=== PATIENT | female | born 1995 | race Caucasian/White ===

== ENCOUNTER 2019-05-25 20:20 | Outpatient (CLI) | payer SELFPAY ==
[2019-05-25 20:26] VITALS: BP 123/73
[2019-05-25 21:49] LABS: T.VAGINALIS (WET MOUNT) NO TRICHOMONAS SEEN; WBCS (WET MOUNT) 4+ WBCS SEEN; YEAST (WET MOUNT) NO YEAST SEEN
[2019-05-25 21:50] LABS: BACTERIA (WET MOUNT) 4+ BACTERIA SEEN; EPITHELIALS (WET MOUNT) 3+ EPITHELIALS SEEN; RBCS (WET MOUNT) 2+ RBCS SEEN
[2019-05-25 21:57] LABS: APPEARANCE,URINE CLOUDY; BILIRUBIN,URINE NEGATIVE (NEGATIVE); COLOR,URINE DARK YELLOW; GLUCOSE, URINE NEGATIVE (NEGATIVE); KETONES,URINE TRACE mg/dL (NEGATIVE); LEUKOCYTE ESTERASE,URINE SMALL (NEGATIVE); NITRITE,URINE NEGATIVE (NEGATIVE); PROTEIN,URINE 30 mg/dL (NEGATIVE); URINE SPECIFIC GRAVITY 1.031
[2019-05-25 21:59] LABS: ABSOLUTE EOSINOPHILS # (AUTO) 0.1 10^3/uL (0.0-0.6); ABSOLUTE LYMPHOCYTES (AUTO) 2.2 10^3/uL (0.5-4.7); ABSOLUTE MONOCYTES (AUTO) 0.8 10^3/uL (0.1-1.4); BASOPHILS % (AUTO) 0.2 % (0-2); EOSINOPHILS % (AUTO) 0.7 % (0-6); HEMATOCRIT 33.3 % (36.0-47.0); HEMOGLOBIN 11.6 g/dL (12.0-15.5); LYMPHOCYTES % (AUTO) 21.7 % (13-45); MEAN CORPUSCULAR HEMOGLOBIN 32.7 pg (27.0-33.4); MEAN CORPUSCULAR HGB CONC 34.8 g/dL (32.0-36.0); MEAN CORPUSCULAR VOLUME 94 fl (80-97); MONOCYTES % (AUTO) 7.5 % (3-13); PLATELET COUNT 192 10^3/uL (150-450); RED BLOOD COUNT 3.54 10^6/uL (3.72-5.28); RED CELL DISTRIBUTION WIDTH 12.6 % (11.5-14.0); SEGMENTED NEUTROPHILS % (AUTO) 69.9 % (42-78); TOTAL CELLS COUNTED % (AUTO) 100 %; WHITE BLOOD COUNT 10.1 10^3/uL (4.0-10.5)
[2019-05-25 22:03] LABS: URINE AMPHETAMINES SCREEN NEGATIVE; URINE BARBITURATES SCREEN NEGATIVE; URINE BENZODIAZEPINES SCREEN NEGATIVE; URINE COCAINE SCREEN NEGATIVE; URINE MARIJUANA (THC) SCREEN NEGATIVE; URINE METHADONE SCREEN NEGATIVE; URINE PHENCYCLIDINE SCREEN NEGATIVE
--- NOTE | 2019-05-25 22:52 | RADIOLOGY REPORT (SQ) ---
EXAM DESCRIPTION: US LIMITED CLINICAL HISTORY: 24 years Female cervical length, no pnc, dating, fluid, , LMP 12/02/2018 COMPARISON: None TECHNIQUE: Transabdominal limited OB ultrasound was performed for a total of 30 images. FINDINGS: There is a single intrauterine fetus in a vertex presentation. The heart rate measures 137 bpm. The cervix is closed and measures 3.6 cm in length. The amniotic fluid index measures 13.0 cm. The placenta is posterior, no previa. The BPD gives an EGA of 25 weeks four days, head circumference 25 weeks six days, abdominal circumference 24 weeks five days, and femur length 24 weeks two days. The estimated weight is 727 g or 1 lb. 10 oz. at 42%. The composite EGA by ultrasound is 25 weeks one day. The clinical age is 24 weeks six days. IMPRESSION: Single viable intrauterine in a vertex presentation with a posterior placenta, adequate amniotic fluid volume, estimated weight of 727g at 42%, and composite EGA by ultrasound of 25 weeks 1 day giving an EDC on 09/06/2019.
[2019-05-25 23:08] LABS: CHLAM PCR NOT DETECTED (NOT DETECT)
[2019-05-28 07:05] LABS: HEPATITS B SURFACE ANTIGEN Negative (Negative)
[2019-05-28 07:08] LABS: HEPATITIS C VIRUS AB >11.0 s/co ratio (0.0-0.9)
== END 2019-05-25 23:11 | disposition home or self-care (01) ==
LOC: EDSTATUS 20:41 → LC 20:49
PROVIDERS: ATTEND Student in an Organized Health Care Education/Training Program
PROC: 4A1HXCZ Monitoring of Products of Conception, Cardiac Rate, External Approach (ICD-10-PCS; principal; 2019-05-25)
DX: O09.32 Supervision of pregnancy with insufficient antenatal care, second trimester (principal); Z3A.25 25 weeks gestation of pregnancy
CPT/HCPCS: 36415; 76815; 80307; 81001; 85025; 86592; 86695; 86696; 86701; 86762; 86803; 86804; 86850; 86900; 86901; 87086; 87210; 87340; 87491; 87591

== ENCOUNTER 2019-06-05 22:02 | Emergency (ER) | payer SELFPAY ==
--- NOTE | 2019-06-05 22:37 | ER Document Report ---
ED Medical Screen (RME) - General Chief Complaint: Nausea Stated Complaint: COUGH SORE THROAT Time Seen by Provider: 06/05/19 22:32 Primary Care Provider: MATTHEW JUNIOR MD [Primary Care Provider] - Follow up as needed Mode of Arrival: Ambulatory Information source: Patient Notes: 24-year-old female that is 26 weeks G4, P3 presents to the emergency department with complaints of waking up this morning with a sore throat cough not feeling short of breath. She reports she has been vomiting having diarrhea all day. Denies fever but reports she has been feeling shaky and sweaty. Patient reports symptoms started this morning. Patient reports 1 month ago she came from [place] on a bus. She also reports she works at [employer]. Patient did not receive her flu vaccine this year. No known exposure to the coronavirus. I have greeted and performed a rapid initial assessment of this patient. A comprehensive ED assessment and evaluation of the patient, analysis of test results and completion of the medical decision making process will be conducted by additional ED providers. TRAVEL OUTSIDE OF THE [place] IN LAST 30 DAYS: No Physical Exam - Vital signs Vitals: Temp Pulse Resp BP Pulse Ox 98.3 F 100 18 109/71 98 06/05/19 22:14 06/05/19 22:14 06/05/19 22:14 06/05/19 22:14 06/05/19 22:14 Course - Vital Signs Vital signs: Temp Pulse Resp BP Pulse Ox 98.3 F 100 18 109/71 98 06/05/19 22:14 06/05/19 22:14 06/05/19 22:14 06/05/19 22:14 06/05/19 22:14 Doctor's Discharge - Discharge Referrals: MATTHEW JUNIOR MD [Primary Care Provider] - Follow up as needed
[2019-06-05 23:06] LABS: ABSOLUTE EOSINOPHILS # (AUTO) 0.1 10^3/uL (0.0-0.6); ABSOLUTE LYMPHOCYTES (AUTO) 2.3 10^3/uL (0.5-4.7); ABSOLUTE MONOCYTES (AUTO) 0.8 10^3/uL (0.1-1.4); ABSOLUTE NEUT (AUTO) 6.7 10^3/uL (1.7-8.2); BASOPHILS % (AUTO) 0.3 % (0-2); EOSINOPHILS % (AUTO) 1.3 % (0-6); HEMATOCRIT 31.2 % (36.0-47.0); HEMOGLOBIN 10.9 g/dL (12.0-15.5); LYMPHOCYTES % (AUTO) 22.9 % (13-45); MEAN CORPUSCULAR HEMOGLOBIN 32.4 pg (27.0-33.4); MEAN CORPUSCULAR HGB CONC 35.1 g/dL (32.0-36.0); MEAN CORPUSCULAR VOLUME 93 fl (80-97); MONOCYTES % (AUTO) 7.9 % (3-13); PLATELET COUNT 180 10^3/uL (150-450); RED BLOOD COUNT 3.38 10^6/uL (3.72-5.28); RED CELL DISTRIBUTION WIDTH 12.8 % (11.5-14.0); SEGMENTED NEUTROPHILS % (AUTO) 67.6 % (42-78); TOTAL CELLS COUNTED % (AUTO) 100 %; WHITE BLOOD COUNT 9.9 10^3/uL (4.0-10.5)
--- NOTE | 2019-06-05 23:16 | RADIOLOGY REPORT (SQ) ---
EXAM DESCRIPTION: XR CHEST 2 VIEWS COMPLETED DATE/TME: 06/05/2019 22:34 CLINICAL HISTORY: 24 years, Female, cough SOB COMPARISON: None. NUMBER OF VIEWS: 2 TECHNIQUE: Frontal and lateral views of the chest LIMITATIONS: None. FINDINGS: The heart size is normal. The lungs are clear. There is no pneumothorax IMPRESSION: Negative chest copyright 2011 [employer]- All Rights Reserved
[2019-06-05 23:24] LABS: ALBUMIN 3.5 g/dL (3.5-5.0); ALKALINE PHOSPHATASE 47 U/L (38-126); ANION GAP 7 (5-19); ASPARTATE AMINO TRANSFERASE 28 U/L (14-36); BILIRUBIN,DIRECT 0.2 mg/dL (0.0-0.4); BILIRUBIN,TOTAL 0.4 mg/dL (0.2-1.3); BLOOD UREA NITROGEN 10 mg/dL (7-20); CALCIUM 8.9 mg/dL (8.4-10.2); CARBON DIOXIDE 26 mmol/L (22-30); CHLORIDE 103 mmol/L (98-107); GLUCOSE 84 mg/dL (75-110); POTASSIUM 3.8 mmol/L (3.6-5.0); TOTAL PROTEIN 6.7 g/dL (6.3-8.2)
[2019-06-05 23:34] LABS: A TYPE INFLUENZA AG NEGATIVE (NEGATIVE); B INFLUENZA AG NEGATIVE (NEGATIVE)
[2019-06-06] MEDS ORDERED: METOCLOPRAMIDE HCL 10 MG TABLET PO ONE (00:23)
--- NOTE | 2019-06-06 00:29 | ER Document Report ---
ED General - General Chief Complaint: Nausea/Vomiting/Diarrhea Stated Complaint: COUGH SORE THROAT Time Seen by Provider: 06/05/19 22:32 Primary Care Provider: [facility] [Provider Group] - Follow up as needed [facility] [Provider Group] - Follow up as needed [facility] [NO LOCAL MD] - Follow up as needed Mode of Arrival: Ambulatory TRAVEL OUTSIDE OF THE [place] IN LAST 30 DAYS: No - HPI Notes: Patient is a 24-year-old female G4, P3 approximately 26 weeks with h/o hep C presents complaining of having sore throat and dry cough that began this morning and having some nausea/vomit/diarrhea today. Patient states that she does continue to feel nauseated, but has not vomited in the last couple hours. She is urinating normally. No vaginal discharge, odor, or bleeding. She is not having any lower pelvic pain or low back pain. Denies drug allergies. She has not been traveling overseas or been exposed anyone that is being investigated or has coronavirus. No fever or shortness of breath. Denies any headache, fever, neck pain, chest pain, palpitations, syncope, shortness of breath, wheeze, dysp derrick, abdominal pain, urinary retention, dysuria, hematuria, back pain, or rash. - Related Data Allergies/Adverse Reactions: No Known Allergies Allergy (Unverified 06/05/19 23:13) Past Medical History - General Information source: Patient - Social History Smoking Status: Never Smoker Family History: Reviewed & Not Pertinent Patient has suicidal ideation: No Patient has homicidal ideation: No Review of Systems - Review of Systems -: Yes All other systems reviewed and negative Physical Exam - Vital signs Vitals: Temp Pulse Resp BP Pulse Ox 98.3 F 100 18 109/71 98 06/05/19 22:14 06/05/19 22:14 06/05/19 22:14 06/05/19 22:14 06/05/19 22:14 - Notes Notes: PHYSICAL EXAMINATION: GENERAL: Well-appearing, well-nourished and in no acute distress. A&Ox4. Answers questions appropriately. Moves comfortably w/o notable distress HEAD: Atraumatic, normocephalic. EYES: Pupils equal round and reactive to light, extraocular movements intact, sclera anicteric, conjunctiva are normal. ENT: Nares patent and with clear discharge. oropharynx mild erythema without exudates. No tonsilar hypertrophy with mild erythema no exudate. No palatine shift. Uvula midline. No tongue protrusion. No drooling, hoarseness, or airway compromise. Moist mucous membranes. No sinus tenderness. NECK: Normal range of motion, supple without lymphadenopathy. No rigidity/meningismus. LUNGS: Breath sounds clear to auscultation bilaterally and equal. No wheezes rales or rhonchi. No retractions HEART: Regular rate and rhythm without murmurs, rubs, gallops. ABDOMEN: Soft, nontender, nondistended abdomen. No guarding, no rebound. Normal bowel sounds present. No CVA tenderness bilaterally. NEUROLOGICAL: Normal speech, normal gait. PSYCH: Normal mood, normal affect. SKIN: Warm, Dry, normal turgor, no rashes or lesions noted. Course - Re-evaluation Re-evalutation: 06/06/19 Patient is an afebrile, well-hydrated, 24-year-old female who presents with acute URI/vomiting/diarrhea, suspect viral. Vitals are acceptable without significant tachycardia, tachypnea, or hypoxia. PE is otherwise unremarkable. Patient's abdomen is soft nontender throughout. Her lungs are clear to auscultation bilaterally. Labs are acceptable. UA I suspect to be contaminate and pt otherwise does not have any urinary symptoms. Patient has not had any emesis throughout her stay. Patient is nontoxic-appearing and is tolerating p.o. without difficulty. Rapid strep/influenza and chest x-ray unremarkable. Patient does not have symptomatology consistent with coronavirus as she is lacking fever and shortness of breath. No known exposures. No further work-up warranted at this time. Low suspicion for any sepsis, meningitis, severe dehydration, respiratory compromise, pneumonia, acute abdomen, or other systemic emergent condition at this time. Patient is aware that condition can change from initial presentation and she needs to monitor symptoms closely and seek medical attention with any acute changes. Recheck with your PCM in 3 to 5 days. Establish with an RESIDENTIAL ENERGY AUDITOR. Return to the ED with any other worsening/concerning symptoms. Patient is in agreement. - Vital Signs Vital signs: Temp Pulse Resp BP Pulse Ox 98.3 F 100 18 109/71 98 06/05/19 22:14 06/05/19 22:14 06/05/19 22:14 06/05/19 22:14 06/05/19 22:14 - Laboratory Result Diagrams: 06/05/19 22:42 06/05/19 22:42 Laboratory results interpreted by me: 06/05/19 06/05/19 06/05/19 22:42 22:42 22:42 RBC 3.38 L Hgb 10.9 L Hct 31.2 L Sodium 135.9 L Ur Leukocyte Esterase MODERATE H Discharge - Discharge Clinical Impression: Nausea vomiting and diarrhea, Sore throat, Cough Condition: Stable Disposition: HOME, SELF-CARE Additional Instructions: Maintain adequate fluid and food intake Eddy diet (B.R.A.T.) Bananas, rice, apples, toast, etc reglan as needed tylenol if needed Monitor for any worsening symptoms Make sure you are staying hydrated enough to urinate and have normal BM's Recheck with your PCM/OBGYN in 3-5 days Consider consult with Gastroenterology for ongoing/worsening symptoms Return to the ED with any worsening symptoms and/or development of fever, headache, chest pain, palpitations, syncope, shortness of breath, trouble breathing, abdominal pain, n/v/d, blood in stool/urine, weakness, or other worsening symptoms that are concerning to you. Prescriptions: Metoclopramide HCl [Reglan] 10 mg PO BID PRN #10 tablet PRN Reason: Referrals: [facility] [Provider Group] - Follow up as needed [facility] [Provider Group] - Follow up as needed [facility] [NO LOCAL MD] - Follow up as needed
[2019-06-06 00:53] LABS: APPEARANCE,URINE CLOUDY; BILIRUBIN,URINE NEGATIVE (NEGATIVE); COLOR,URINE YELLOW; GLUCOSE, URINE NEGATIVE (NEGATIVE); KETONES,URINE NEGATIVE (NEGATIVE); LEUKOCYTE ESTERASE,URINE MODERATE (NEGATIVE); NITRITE,URINE NEGATIVE (NEGATIVE); PROTEIN,URINE NEGATIVE (NEGATIVE); URINE SPECIFIC GRAVITY 1.016; UROBILINOGEN,URINE NEGATIVE mg/dL (<2.0)
[2019-06-06 01:55] VITALS: BP 106/68
== END 2019-06-06 01:05 | disposition home or self-care (01) ==
LOC: ER 22:02
DX: O21.9 Vomiting of pregnancy, unspecified (principal); O26.92 Pregnancy related conditions, unspecified, second trimester; J02.9 Acute pharyngitis, unspecified; R05 Cough; R19.7 Diarrhea, unspecified; Z3A.26 26 weeks gestation of pregnancy
CPT/HCPCS: 36415; 71046; 80053; 81001; 85025; 87070; 87804; 87880; 99284

== ENCOUNTER 2019-06-30 20:34 | Outpatient (CLI) | payer MEDICAID ==
[2019-06-30 21:14] LABS: APPEARANCE,URINE SLIGHTLY-CLOUDY; BILIRUBIN,URINE NEGATIVE (NEGATIVE); GLUCOSE, URINE NEGATIVE (NEGATIVE); KETONES,URINE TRACE mg/dL (NEGATIVE); LEUKOCYTE ESTERASE,URINE NEGATIVE (NEGATIVE); NITRITE,URINE NEGATIVE (NEGATIVE); PROTEIN,URINE 30 mg/dL (NEGATIVE); URINE SPECIFIC GRAVITY 1.031
[2019-06-30 21:17] LABS: COLOR,URINE DARK YELLOW
[2019-06-30 21:19] LABS: URINE AMPHETAMINES SCREEN NEGATIVE; URINE BARBITURATES SCREEN NEGATIVE; URINE BENZODIAZEPINES SCREEN NEGATIVE; URINE COCAINE SCREEN NEGATIVE; URINE MARIJUANA (THC) SCREEN NEGATIVE; URINE METHADONE SCREEN NEGATIVE; URINE PHENCYCLIDINE SCREEN NEGATIVE
[2019-06-30] MEDS ORDERED: RINGERS SOLUTION,LACTATED 1,000 ML IV ONE (21:37)
== END 2019-06-30 22:56 | disposition home or self-care (01) ==
LOC: LC 20:34
PROVIDERS: ATTEND Obstetrics & Gynecology
PROC: 4A1HXCZ Monitoring of Products of Conception, Cardiac Rate, External Approach (ICD-10-PCS; principal; 2019-06-30)
DX: Z34.93 Encounter for supervision of normal pregnancy, unspecified, third trimester (principal)
CPT/HCPCS: 80307; 81001

== ENCOUNTER 2019-07-11 11:36 | Outpatient (CLI) | payer MEDICAID ==
[2019-07-11 12:42] LABS: RBCS (WET MOUNT) RARE RBCS SEEN; T.VAGINALIS (WET MOUNT) NO TRICHOMONAS SEEN; WBCS (WET MOUNT) 2+ WBCS SEEN; YEAST (WET MOUNT) NO YEAST SEEN
[2019-07-11 12:43] LABS: BACTERIA (WET MOUNT) 4+ BACTERIA SEEN; EPITHELIALS (WET MOUNT) 3+ EPITHELIALS SEEN
[2019-07-11 12:48] LABS: APPEARANCE,URINE SLIGHTLY-CLOUDY; BILIRUBIN,URINE NEGATIVE (NEGATIVE); COLOR,URINE YELLOW; GLUCOSE, URINE NEGATIVE (NEGATIVE); KETONES,URINE NEGATIVE (NEGATIVE); LEUKOCYTE ESTERASE,URINE NEGATIVE (NEGATIVE); NITRITE,URINE NEGATIVE (NEGATIVE); PROTEIN,URINE NEGATIVE (NEGATIVE)
[2019-07-11 13:02] LABS: URINE AMPHETAMINES SCREEN NEGATIVE; URINE BARBITURATES SCREEN NEGATIVE; URINE BENZODIAZEPINES SCREEN NEGATIVE; URINE COCAINE SCREEN NEGATIVE; URINE MARIJUANA (THC) SCREEN NEGATIVE; URINE METHADONE SCREEN NEGATIVE; URINE PHENCYCLIDINE SCREEN NEGATIVE
[2019-07-11 14:13] LABS: CHLAM PCR NOT DETECTED (NOT DETECT)
--- NOTE | 2019-07-11 14:21 | RADIOLOGY REPORT (SQ) ---
EXAM DESCRIPTION: U/S OB LIMITED IMAGES COMPLETED DATE/TIME: 07/11/2019 1:53 pm REASON FOR STUDY: cervical length, placenta eval COMPARISON: 06/25/2019 TECHNIQUE: Limited transabdominal grayscale ultrasound for evaluation of specific requested obstetri yessi parameters. LIMITATIONS: None. FINDINGS: CERVICAL LENGTH: 3.7 cm Closed. KARRIE: LVP== 4.4 cm x 4.2 cm. FHR: 141 beats per minute. PRESENTATION: Cephalic. PLACENTA: Posterior. The placenta is free from the internal cervical os. ANATOMY: Not assessed OTHER: KYLEE semi: 09/06/2019. EGA: 31 weeks 6 days. IMPRESSION: LIMITED OBSTETRICAL ULTRASOUND WITH MEASURED PARAMETERS DELINEATED ABOVE. Trimester of : Third trimester - 28 weeks to delivery. TECHNICAL DOCUMENTATION: JOB ID: [id number] 2010 [employer]- All Rights Reserved Reading location - IP/workstation name: [email or web address]
== END 2019-07-11 16:09 | disposition home or self-care (01) ==
LOC: LC 11:36
PROVIDERS: ATTEND Student in an Organized Health Care Education/Training Program
DX: O46.93 Antepartum hemorrhage, unspecified, third trimester (principal); O99.283 Endocrine, nutritional and metabolic diseases complicating pregnancy, third trimester; E86.0 Dehydration; O21.2 Late vomiting of pregnancy; R10.2 Pelvic and perineal pain; O09.33 Supervision of pregnancy with insufficient antenatal care, third trimester; Z3A.31 31 weeks gestation of pregnancy
CPT/HCPCS: 36415; 76815; 80307; 81005; 86850; 86900; 86901; 87210; 87491; 87591

== ENCOUNTER 2019-07-21 21:19 | Outpatient (CLI) | payer MEDICAID ==
[2019-07-21 22:14] LABS: APPEARANCE,URINE SLIGHTLY-CLOUDY; BILIRUBIN,URINE NEGATIVE (NEGATIVE); CALCIUM OXALATE CRYSTALS,URINE MANY /HPF; COLOR,URINE AMBER; GLUCOSE, URINE NEGATIVE (NEGATIVE); KETONES,URINE TRACE mg/dL (NEGATIVE); LEUKOCYTE ESTERASE,URINE NEGATIVE (NEGATIVE); NITRITE,URINE NEGATIVE (NEGATIVE); PROTEIN,URINE 100 mg/dL (NEGATIVE); URINE SPECIFIC GRAVITY 1.035
[2019-07-21 22:29] LABS: URINE AMPHETAMINES SCREEN NEGATIVE; URINE BARBITURATES SCREEN NEGATIVE; URINE BENZODIAZEPINES SCREEN NEGATIVE; URINE COCAINE SCREEN NEGATIVE; URINE MARIJUANA (THC) SCREEN NEGATIVE; URINE METHADONE SCREEN NEGATIVE; URINE PHENCYCLIDINE SCREEN NEGATIVE
== END 2019-07-21 22:35 | disposition home or self-care (01) ==
LOC: LC 21:19
PROVIDERS: ATTEND Student in an Organized Health Care Education/Training Program
DX: O47.03 False labor before 37 completed weeks of gestation, third trimester (principal); Z3A.33 33 weeks gestation of pregnancy
CPT/HCPCS: 59025; 80307; 81001; 87086

== ENCOUNTER 2019-08-24 14:57 | Outpatient (CLI) | payer MEDICAID ==
[2019-08-24] MEDS ORDERED: RINGERS SOLUTION,LACTATED 1,000 ML IV ONE (15:30)
[2019-08-24 15:58] LABS: APPEARANCE,URINE CLOUDY; BILIRUBIN,URINE NEGATIVE (NEGATIVE); COLOR,URINE AMBER; GLUCOSE, URINE NEGATIVE (NEGATIVE); KETONES,URINE NEGATIVE (NEGATIVE); LEUKOCYTE ESTERASE,URINE LARGE (NEGATIVE); NITRITE,URINE NEGATIVE (NEGATIVE); PROTEIN,URINE 30 mg/dL (NEGATIVE); URINE SPECIFIC GRAVITY 1.023
[2019-08-24 16:17] LABS: URINE AMPHETAMINES SCREEN NEGATIVE; URINE BARBITURATES SCREEN NEGATIVE; URINE BENZODIAZEPINES SCREEN NEGATIVE; URINE COCAINE SCREEN NEGATIVE; URINE MARIJUANA (THC) SCREEN NEGATIVE; URINE METHADONE SCREEN NEGATIVE; URINE PHENCYCLIDINE SCREEN NEGATIVE
[2019-08-24] MEDS ORDERED: HYDROXYZINE PAMOATE 50 MG CAPSULE ONE (16:22)
[2019-08-24] MEDS ORDERED: HYDROXYZINE PAMOATE 50 MG CAPSULE PO ONE (16:22)
--- NOTE | 2019-08-24 16:43 | Non Stress Test Report ---
Non Stress Test Datetime Report Generated by CPN: 08/24/2019 16:43 DEMOGRAPHIC Test Number: 2 EGA NST: 38.1 INDICATION Indication for Study (NST) Other: LC VITAL SIGNS Temperature - NST: 98.1 Pulse - NST: 94 RESP - NST: 18 NBPSYS NST: 113 NBPDIA NST: 55 MONITORING Monitor Explained: Monitor Explained; Test Explained; Patient Verbalized Understanding Time on Monitor: 08/24/2019 15:19 Time off Monitor: 08/24/2019 16:22 NST Duration: 63 NST INTERVENTIONS NST Interventions: PO Hydration; Reposition Patient Physician Notified NST: KDuncan,CNM BABY A Movement : Present Contraction Frequency : 5-7 FHR Baseline : 135 Accelerations : 15X15 Decelerations : None Variability : Moderate 6-25bpm NST Review: Meets Criteria for Reactive NST NST Review and Verified By : OLLIE Brown NST Results: Reactive NST REPORT Report Trigger: Send Report
== END 2019-08-24 16:34 | disposition home or self-care (01) ==
LOC: LC 14:57
PROVIDERS: ATTEND Obstetrics & Gynecology
DX: O47.1 False labor at or after 37 completed weeks of gestation (principal); O09.33 Supervision of pregnancy with insufficient antenatal care, third trimester; Z3A.38 38 weeks gestation of pregnancy; Z88.8 Allergy status to other drugs, medicaments and biological substances
CPT/HCPCS: 59025; 81005; 80307; J3490

== ENCOUNTER 2019-08-26 02:35 | Outpatient (CLI) | payer MEDICAID ==
[2019-08-26] MEDS ORDERED: RINGERS SOLUTION,LACTATED 1,000 ML IV ONE (03:27)
[2019-08-26] MEDS ORDERED: RINGERS SOLUTION,LACTATED 1,000 ML IV PRN (03:27)
[2019-08-26] MEDS ORDERED: ONDANSETRON HCL INJ/PF 4 MG/2 ML SDV IV PRN (03:28)
[2019-08-26 03:33] LABS: APPEARANCE,URINE SLIGHTLY-CLOUDY; BILIRUBIN,URINE NEGATIVE (NEGATIVE); COLOR,URINE YELLOW; GLUCOSE, URINE NEGATIVE (NEGATIVE); KETONES,URINE 20 mg/dL (NEGATIVE); LEUKOCYTE ESTERASE,URINE SMALL (NEGATIVE); NITRITE,URINE NEGATIVE (NEGATIVE); PROTEIN,URINE NEGATIVE (NEGATIVE); URINE SPECIFIC GRAVITY 1.014; UROBILINOGEN,URINE NEGATIVE mg/dL (<2.0)
[2019-08-26] MEDS ORDERED: ONDANSETRON HCL INJ/PF 4 MG/2 ML SDV ONE (03:45)
[2019-08-26 03:53] LABS: URINE AMPHETAMINES SCREEN NEGATIVE; URINE BARBITURATES SCREEN NEGATIVE; URINE BENZODIAZEPINES SCREEN NEGATIVE; URINE COCAINE SCREEN NEGATIVE; URINE MARIJUANA (THC) SCREEN NEGATIVE; URINE METHADONE SCREEN NEGATIVE; URINE PHENCYCLIDINE SCREEN NEGATIVE
== END 2019-08-26 05:17 | disposition home or self-care (01) ==
LOC: LC 02:35
PROVIDERS: ATTEND Student in an Organized Health Care Education/Training Program
DX: Z34.83 Encounter for supervision of other normal pregnancy, third trimester (principal); Z3A.39 39 weeks gestation of pregnancy
CPT/HCPCS: 59025; 81005; 80307; J2405

== ENCOUNTER 2019-08-26 18:32 | Inpatient (IN) | payer MEDICAID ==
--- NOTE | 2019-08-26 18:37 | Non Stress Test Report ---
Non Stress Test Datetime Report Generated by CPN: 08/26/2019 18:36 DEMOGRAPHIC EGA NST: 38.3 INDICATION Indication for Study (NST) Other: labor check URINE RESULTS Urine Protein, NST: Negative Urine Ketones - NST: Positive Urine Glucose - NST: Negative Urine Blood - NST: Positive MONITORING Monitor Explained: Monitor Explained; Test Explained; Patient Verbalized Understanding Time on Monitor: 08/26/2019 02:58 Time off Monitor: 08/26/2019 05:04 NST Duration: 126 NST INTERVENTIONS NST Interventions: PO Hydration; IV Fluids Physician Notified NST: lebron BABY A: [id number] BABY A Movement : Present Contraction Frequency : 3-5 FHR Baseline : 140 Accelerations : 15X15 Decelerations : None Variability : Moderate 6-25bpm NST Review: Meets Criteria for Reactive NST NST Review and Verified By : Rome Marvin RN NST Results: Reactive NST REPORT Report Trigger: Send Report
[2019-08-26 19:04] LABS: APPEARANCE,URINE CLEAR; BILIRUBIN,URINE NEGATIVE (NEGATIVE); COLOR,URINE AMBER; GLUCOSE, URINE NEGATIVE (NEGATIVE); KETONES,URINE NEGATIVE (NEGATIVE); LEUKOCYTE ESTERASE,URINE NEGATIVE (NEGATIVE); NITRITE,URINE NEGATIVE (NEGATIVE); PROTEIN,URINE NEGATIVE (NEGATIVE); URINE SPECIFIC GRAVITY 1.017
[2019-08-26] MEDS ORDERED: RINGERS SOLUTION,LACTATED 1,000 ML IV ONE (19:04)
[2019-08-26] MEDS ORDERED: NORMAL SALINE 250 ML IV PRN (19:17)
[2019-08-26 19:27] LABS: URINE AMPHETAMINES SCREEN NEGATIVE; URINE BARBITURATES SCREEN NEGATIVE; URINE BENZODIAZEPINES SCREEN NEGATIVE; URINE COCAINE SCREEN NEGATIVE; URINE MARIJUANA (THC) SCREEN NEGATIVE; URINE METHADONE SCREEN NEGATIVE; URINE PHENCYCLIDINE SCREEN NEGATIVE
[2019-08-26 19:40] LABS: ABSOLUTE LYMPHOCYTES (AUTO) 1.7 10^3/uL (0.5-4.7); ABSOLUTE MONOCYTES (AUTO) 0.7 10^3/uL (0.1-1.4); ABSOLUTE NEUT (AUTO) 9.7 10^3/uL (1.7-8.2); BASOPHILS % (AUTO) 0.3 % (0-2); EOSINOPHILS % (AUTO) 0.4 % (0-6); HEMATOCRIT 32.3 % (36.0-47.0); HEMOGLOBIN 10.7 g/dL (12.0-15.5); LYMPHOCYTES % (AUTO) 13.9 % (13-45); MEAN CORPUSCULAR HEMOGLOBIN 27.2 pg (27.0-33.4); MEAN CORPUSCULAR HGB CONC 33.2 g/dL (32.0-36.0); MEAN CORPUSCULAR VOLUME 82 fl (80-97); MONOCYTES % (AUTO) 5.8 % (3-13); PLATELET COUNT 216 10^3/uL (150-450); RED BLOOD COUNT 3.94 10^6/uL (3.72-5.28); RED CELL DISTRIBUTION WIDTH 16.2 % (11.5-14.0); SEGMENTED NEUTROPHILS % (AUTO) 79.6 % (42-78); TOTAL CELLS COUNTED % (AUTO) 100 %; WHITE BLOOD COUNT 12.2 10^3/uL (4.0-10.5)
[2019-08-26 19:47] LABS: INTERNATIONAL RATION (INR) 0.91; PROTHROMBIN TIME 12.3 SEC (11.4-15.4)
[2019-08-26 19:48] LABS: PARTIAL THROMBOPLASTIN TIME 25.9 SEC (23.5-35.8)
[2019-08-26 19:56] LABS: ALBUMIN 3.6 g/dL (3.5-5.0); ALKALINE PHOSPHATASE 105 U/L (38-126); ANION GAP 9 (5-19); ASPARTATE AMINO TRANSFERASE 23 U/L (14-36); BILIRUBIN,DIRECT 0.1 mg/dL (0.0-0.4); BLOOD UREA NITROGEN 7 mg/dL (7-20); CALCIUM 9.2 mg/dL (8.4-10.2); CARBON DIOXIDE 21 mmol/L (22-30); CHLORIDE 105 mmol/L (98-107); GLUCOSE 124 mg/dL (75-110); POTASSIUM 3.7 mmol/L (3.6-5.0); TOTAL PROTEIN 6.9 g/dL (6.3-8.2)
[2019-08-26] MEDS ORDERED: EPHEDRINE SULFATE INJ 50 MG/1 ML AMPULE ONE (20:50)
[2019-08-26] MEDS ORDERED: FENTANYL/BUPIVACAINE/NS/PF 300 MCG/150 ML RTUINJ EPI ONE (20:51)
[2019-08-26] MEDS ORDERED: BUPIVACAINE HCL 0.25 % INJ/PF (2.5 MG/1 ML) 30 ML VIAL ONE (20:51)
[2019-08-26] MEDS ORDERED: OXYTOCIN/0.9 % SODIUM CHLORIDE 30 UNIT/500 ML RTUINJ ONE (20:52)
[2019-08-26] MEDS ORDERED: LIDOCAINE 1% INJ-PF (10 MG/ML) 30 ML SDV ONE (20:52)
[2019-08-26] MEDS ORDERED: OXYTOCIN 10 UNIT/ML VIAL ONE (20:52)
[2019-08-26] MEDS ORDERED: MISOPROSTOL 0.2 MG TABLET ONE (20:52)
[2019-08-26] MEDS: RINGERS SOLUTION,LACTATED 1,000 ML IV PRN ×2 (21:00→22:17)
--- NOTE | 2019-08-26 21:03 | Admission Physical ---
Datetime Report Generated by CPN: 08/26/2019 21:02 CURRENT ADMISSION Chief Complaint: Uterine Contractions; Suspected Ruptured Membranes Indication for Induction: Not Applicable; PROM Admit Impression : Term, Intrauterine ; Active Labor; Ruptured Membranes Admit Plan: Admit to Unit; Initiate Labor Protocol ALLERGIES Medication Allergies: Yes Medication Allergies: diazepam/MO (08/26/2019) Latex: No Latex Allergies Food Allergies: NONE Environmental Allergies: NONE OBSTETRICAL HISTORY EDC: 09/06/2019 00:00 : 4 Para: 3 Term: 2 : 1 SAB: 0 IAB: 0 Ectopic: 0 Livin Cesareans: 1 VBACs: 0 Multiple Births: 0 Gestational Diabetes: No Rh Sensitization: No Incompetent Cervix: No RADHA: No Infertility: No ART Treatment: No Uterine Anomaly: No IUGR: No Hx Previous C/S: No Macrosomia: No Hx Loss/Stillborn: No PIH: No Hx : No Placenta Previa/Abruption: No Depression/PP Depression: No PTL/PROM: No Post Hemorrhage: No Current Procedures: Ultrasound Obstetrical History Comments: g1 - 12/01 38 weeks - placenta previa, g2 - 03/03 35 weeks PTL/PTD, , breech g3 - 07/07 39 weeks c/s for distress g4 - current - late to care at 31 weeks- hep c - repeat c/s scheduled 09/05 - close interval - pt has no custody of other children. living with sister. unknown LMP and dated by 25 wk u/s SEE RECORDS Alcohol: No Marijuana : No Cocaine: No Other Illicit Drugs: No Cigarettes: Former Smoker. [id number] MEDICAL HISTORY Diabetes: No Blood Transfusion: No Pulmonary Disease (Asthma, TB): No Breast Disease: No Hypertension: No Landscape Architect And Planner Surgery: No Heart Disease: No Hosp/Surgery: No Autoimmune Disorder: No Anesthetic Complications: No Kidney Disease: No Abnormal Pap Smear: Yes Neuro/Epilepsy: No Psychiatric Disorders: No Other Medical Diseases: No Hepatitis/Liver Disease: Yes Significant Family History: No Varicosities/Phlebitis: No Trauma/Violence : No Thyroid Dysfunction: No Medical History Comments: prio IV drug user, clean since 2017 incarcerated prior to for drug traficking and assault Hep c INFECTIOUS HISTORY Gonorrhea: No Genital Herpes: Yes Chlamydia: No Tuberculosis: No Syphilis: No Hepatitis: Yes HIV/AIDS Exposure: No Rash or Viral Illness: No HPV: No Infectious History Comments: 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 Hep C PHYSICAL EXAM General: Normal HEENT: Normal Neurologic: Normal Thyroid: Deferred Heart: Normal Lungs: Normal Breast: Deferred Back: Normal Abdomen: Normal Genitourinary Exam: Normal Extremities: Normal DTRs: Normal Pelvic Type: Adequate Vital Signs: Reviewed VAGINAL EXAM Dilatation: 3 Effacement: 50 Station: -2 Contraction Comments: q 2-3 MEMBRANES Membranes: Ruptured Amniotic Fluid Color: Clear FETUS A EGA: 38.3 Monitoring: External US FHR- Baseline: 125 Variability: Moderate 6-25bpm Accelerations: 15X15 Decelerations: None FHR Category: Category I Presentation: Vertex Admit Comment: 24yo at 38+3ega presents for SROM clear fluid at 1730. Actimprom positive. h/o x 2 (1 term and 1 ) and h/o section 07/05/2018 for distress. Closely spaced pregnancies and no custody of other children. H/o HSV on valtrex - no lesions. She reports no prior outbreaks. Incarcerated for drug trafficking before move down here - no on probation. Hep C - will need GI pp. Late to care. H/o IV drug use - clean since 2018. business continuity planner placed. Will obtain epidural when patient ready. Pt desires TOLAC. PLANS FOR LABOR AND DELIVERY Labor and Delivery: None Pain Management: None Feeding Preference: Formula Circumcision: N/A INFORMED CONSENT Informed Consent Obtained: Vaginal Delivery; Vaginal After ; Risks, Benefits and Alternatives Discussed Signature: Electronically signed by Amanda Ramos MD ([facility]) on 08/26/2019 at 21:01 with User ID: [email or web address]
[2019-08-26] MEDS ORDERED: OXYTOCIN/0.9 % SODIUM CHLORIDE 30 UNIT/500 ML RTUINJ IV PRN (23:02)
[2019-08-27] MEDS ORDERED: ZOLPIDEM TARTRATE 5 MG TABLET PO PRN (03:35)
[2019-08-27] MEDS ORDERED: PROMETHAZINE HCL INJ 25 MG/1 ML VIAL IV PRN ×2 (03:35→11:30)
[2019-08-27] MEDS ORDERED: ACETAMINOPHEN 325 MG TABLET PO PRN (03:35)
[2019-08-27] MEDS ORDERED: NA PHOS,M-B/NA PHOS,DI-BA (ADULT) 133 ML ENEMA PR PRN (03:35)
[2019-08-27] MEDS ORDERED: BENZOCAINE/MENTHOL AEROSOL SPRAY 56 ML TOP PRN (03:35)
[2019-08-27] MEDS ORDERED: MAGNESIUM HYDROXIDE SUSP 30 ML UDCUP PO PRN (03:35)
[2019-08-27] MEDS ORDERED: MEASLES,MUMPS&RUBELLA VACC/PF 0.5 ML VIAL SUBCUT PRN ×2 (03:35→11:30)
[2019-08-27] MEDS ORDERED: GLYCERIN/WITCH HAZEL LEAF 1 EACH MED..WIPE TP PRN (03:35)
[2019-08-27] MEDS ORDERED: DIPH/PERTUSS(ACELL)/TETANUS VAC/PF 0.5 ML SYR (>=10YO) IM PRN ×2 (03:35→11:30)
[2019-08-27] MEDS ORDERED: OXYTOCIN/0.9 % SODIUM CHLORIDE 30 UNIT/500 ML RTUINJ IV PRN (03:35)
[2019-08-27] MEDS ORDERED: DIPHENHYDRAMINE HCL 25 MG CAPSULE PO PRN (03:35)
[2019-08-27] MEDS ORDERED: PSEUDOEPHEDRINE HCL 30 MG TABLET PO PRN (03:35)
[2019-08-27] MEDS ORDERED: PROMETHAZINE HCL 25 MG TABLET PO PRN (03:35)
[2019-08-27] MEDS ORDERED: DIBUCAINE 1% OINTMENT 28 GM TP PRN (03:35)
[2019-08-27] MEDS ORDERED: MISOPROSTOL 0.2 MG TABLET PR PRN (03:35)
[2019-08-27] MEDS ORDERED: PROMETHAZINE HCL 25 MG SUPP.RECT PR PRN (03:35)
[2019-08-27] MEDS ORDERED: ACETAMINOPHEN WITH CODEINE #3 TABLET PO PRN ×2 (03:35)
--- NOTE | 2019-08-27 04:21 | Warning Signs in Babies ---
VOD Warning Signs Datetime Report Generated by [facility]: 08/27/2019 04:21 VOD#608 -Warning Signs in Babies: Needs to be viewed. (07/11/2019 11:44:David Marvin RN)
--- NOTE | 2019-08-27 04:26 | Delivery Summary ---
Del Sum A-C Datetime Report Generated by CPN: 08/27/2019 04:25 DELIVERY PERSONNEL DELIVERY PERSONNEL: [id number] Delivery Doctor:: Amanda Ramos MD FLASK MAKER:: Robinson Merritt CRNA Labor and Delivery Nurse:: David Marvin RN Nursery Nurse:: Pawel Pozo RN Nursery Nurse:: CHRIS Herrera/SUBASSEMBLY ASSEMBLER: Shannon Shannon, ST MATERNAL INFORMATION Delivery Anesthesia: Epidural Medications After Delivery: Pitocin 30 Units in 500ml NS/D5W; Cytotec 1000mcg Per Rectum/Vagina Estimated Blood Loss (ml): 50 Delivery QBL: 10 Maternal Complications: None Provider Comments: VFI delivered in ANDREAS presentation. No nuchal cord. Shoulders and body delivered without difficulty. Cord doubly clamped and cut and to maternal abdomen for NRP. Placenta delivered intact spontaneously. FF at U. No perineal lacerations. Cytotec 1000mcg pr given for uterine tone. Mother and baby stable upon provider leaving the room LABOR SUMMARY EDC: 09/06/2019 00:00 No. Babies in Womb: 1 Attempted: Yes Labor Anesthesia: Epidural LABOR INFORMATION Reason for Induction: Not Applicable Onset of Labor: 08/26/2019 18:50 Complete Dilatation: 08/27/2019 03:06 Oxytocin: N/A Group B Beta Strep: Negative Antibiotics # of Doses: 0 Steroids Given: None Reason Steroids Not Administered: Not Applicable MEMBRANES Membranes Rupture Method: Spontaneous Rupture of Membranes: 08/26/2019 17:30 Length of Rupture (hr): 9.78 Amniotic Fluid Color: Clear Amniotic Fluid Amount: Moderate Amniotic Fluid Odor: Normal STAGES OF LABOR Stage 1 hr: 8 Stage 1 min: 16 Stage 2 hr: 0 Stage 2 min: 11 Stage 3 hr: 0 Stage 3 min: 5 Total Time in Labor hr: 8 Total Time in Labor min: 32 VAGINAL DELIVERY Episiotomy: None Laceration #1: None Laceration Extension #1: N/A Laceration Repair: Not Applicable Sponge Count Correct: N/A Sharps Count Correct: N/A CSECTION DELIVERY Primary Indication: N/A Secondary Indication: N/A CSection Urgency: N/A CSection Incidence: N/A Labor: N/A Elective: N/A CSection Incision: N/A BABY A INFORMATION Delivery Date/Time: 08/27/2019 03:17 Method of Delivery: Vaginal Nurse Controlled Delivery: No Born in Route : No : Successful Forceps: N/A Vacuum Extraction: N/A Shoulder Dystocia : No PRESENTATION/POSITION BABY A Presentation: Cephalic Cephalic Presentation: Vertex Vertex Position: Right Occipital Anterior Breech Presentation: N/A PLACENTA INFORMATION BABY A Placenta Delivery Time : 08/27/2019 03:22 Placenta Method of Delivery: Spontaneous Placenta Status: Delivered SCORES BABY A Heart Rate 1 min: >100 bpm Resp Effort 1 min: Good Cry Reflex Irritability 1 min: Cough or Sneeze or Pulls Away Muscle Tone 1 min: Active Motion Color 1 min: Body Central Garage, Extremities Blue Resuscitation Effort 1 min: Tactile Stimulation SCORE 1 MIN: 9 Heart Rate 5 min: >100 bpm Resp Effort 5 min: Good Cry Reflex Irritability 5 min: Cough or Sneeze or Pulls Away Muscle Tone 5 min: Active Motion Color 5 min: Body Central Garage, Extremities Blue SCORE 5 MIN: 9 INFANT INFORMATION BABY A Gestational Age at Delivery: 38.4 Gestational Status: Early Term- 37- 38.6 Weeks Infant Outcome : Liveborn Infant Condition : Stable Sex: Female IDENTIFICATION BABY A Verification Date/Time: 08/27/2019 03:25 ID Band Number: [id number] Mother's Name Verified: Yes Infant RN Verifying : K Wiliam, RN/ A [place], RN WEIGHT/LENGTH BABY A Infant Birthweight (gm): 3328 Infant Weight (lb): 7 Infant Weight (oz): 5 Infant Length (in): 19.00 Infant Length (cm): 48.26 CORD INFORMATION BABY A No. Cord Vessels: 3 Nuchal Cord : N/A Cord Blood Taken: Yes-For Storage (Mom's Blood type +) Infant Suction: None ASSESSMENT BABY A Infant Complications: None Physical Findings at Delivery: Other Physical Findings- Other: see nursery assessment Respirations: Appears Normal Skin to Skin: Yes Traveling Inventory Associate/ALS Called : No Infant Care By: D. Geriavance RN Transferred To: Remains with Mother BABY B INFORMATION : N/A SIGNATURES Signature: with User ID: [email or web address]
[2019-08-27] MEDS: IBUPROFEN 800 MG TABLET PO SCH ×3 (06:02→21:32)
--- NOTE | 2019-08-27 09:03 | PDOC PROGRESS REPORT ---
Subjective-OB Progress Note for:: 08/27/19 Subjective: holding baby, asking when she can go home, , voiding, visitor at [facility] Physical Exam (OB) Vital Signs: Temp Pulse Resp BP Pulse Ox 99.2 F 79 18 111/51 L 99 08/27/19 07:14 08/27/19 07:14 08/27/19 07:14 08/27/19 07:14 08/27/19 07:14 Intake & Output 08/26/19 08/27/19 08/28/19 06:59 06:59 06:59 Intake Total 160 Balance 160 Weight 86.1 kg - PIH/Pre-Eclampsia Clonus: Negative Headache: Absent Epigastric Pain: No Visual Changes: No - Lochia Lochia Amount: Scant < 10 ml Lochia Color: Rubra/Red - Abdomen Description: Soft, Flat Hernia Present: Yes Fundal Description: Firm, Midline Fundal Height: u/u - u/2 Objective-Diagnostic Laboratory: 08/26/19 19:25 08/26/19 19:25 08/26/19 08/26/19 08/26/19 18:40 19:25 19:25 WBC 12.2 H RBC 3.94 Hgb 10.7 L Hct 32.3 L MCV 82 MCH 27.2 MCHC 33.2 RDW 16.2 H Plt Count 216 Seg Neutrophils % 79.6 H Sodium Potassium Chloride Carbon Dioxide Anion Gap BUN Creatinine Est GFR ( Amer) Glucose Calcium Total Bilirubin AST Alkaline Phosphatase Total Protein Albumin Urine Color MARK Urine Appearance CLEAR Urine pH 5.0 Ur Specific [place] 1.017 Urine Protein NEGATIVE Urine Glucose (UA) NEGATIVE Urine Ketones NEGATIVE Urine Blood NEGATIVE Urine Nitrite NEGATIVE Ur Leukocyte Esterase NEGATIVE Blood Type A POSITIVE Antibody Screen NEGATIVE 08/26/19 19:25 WBC RBC Hgb Hct MCV MCH MCHC RDW Plt Count Seg Neutrophils % Sodium 134.5 L Potassium 3.7 Chloride 105 Carbon Dioxide 21 L Anion Gap 9 BUN 7 Creatinine 0.63 Est GFR ( Amer) > 60 Glucose 124 H Calcium 9.2 Total Bilirubin 1.0 AST 23 Alkaline Phosphatase 105 Total Protein 6.9 Albumin 3.6 Urine Color Urine Appearance Urine pH Ur Specific [place] Urine Protein Urine Glucose (UA) Urine Ketones Urine Blood Urine Nitrite Ur Leukocyte Esterase Blood Type Antibody Screen Assessment and Plan(PN) - Assessment and Plan (1) History of section Is this a current diagnosis for this admission?: Yes (2) Genital HSV Qualifiers: Herpes simplex infection site: unspecified Qualified Code(s): A60.00 - Herpesviral infection of urogenital system, unspecified Is this a current diagnosis for this admission?: Yes (3) Poor patient attendance of care Is this a current diagnosis for this admission?: Yes (4) Spontaneous rupture of amniotic membranes Is this a current diagnosis for this admission?: Yes (5) Hepatitis C Qualifiers: Viral hepatitis chronicity: unspecified Is this a current diagnosis for this admission?: Yes - Time Spent with Patient Time with patient: Less than 15 minutes Medications reviewed and adjusted accordingly: Yes - Disposition Anticipated Discharge: Home Within: within 24 hours
[2019-08-27] MEDS: FAMOTIDINE 20 MG TABLET PO SCH ×2 (09:53→21:32)
[2019-08-27] MEDS: PRENATAL VITAMIN W DHA CAPSULE PO SCH (09:53)
[2019-08-27] MEDS: DOCUSATE SODIUM 100 MG CAPSULE PO SCH ×2 (09:53→17:36)
[2019-08-27] MEDS: SENNOSIDES/DOCUSATE 8.6-50 MG 1 EACH TABLET PO SCH (09:53)
[2019-08-27] MEDS: FERROUS SULFATE 325 MG TABLET PO SCH ×2 (09:53→17:36)
[2019-08-28] MEDS: IBUPROFEN 800 MG TABLET PO SCH ×3 (05:18→21:17)
[2019-08-28 08:01] LABS: HEMATOCRIT 28.4 % (36.0-47.0); HEMOGLOBIN 9.5 g/dL (12.0-15.5); MEAN CORPUSCULAR HEMOGLOBIN 27.5 pg (27.0-33.4); MEAN CORPUSCULAR HGB CONC 33.3 g/dL (32.0-36.0); MEAN CORPUSCULAR VOLUME 83 fl (80-97); PLATELET COUNT 188 10^3/uL (150-450); RED BLOOD COUNT 3.44 10^6/uL (3.72-5.28); RED CELL DISTRIBUTION WIDTH 16.4 % (11.5-14.0); WHITE BLOOD COUNT 9.4 10^3/uL (4.0-10.5)
--- NOTE | 2019-08-28 10:08 | PDOC PROGRESS REPORT ---
Subjective-OB Progress Note for:: 08/28/19 - PP day #1, pt doing well, desires to go home, but we dont think baby will be discharged home today. A+, rubella Immune, Hx . Physical Exam (OB) Vital Signs: Temp Pulse Resp BP Pulse Ox 98.0 F 63 16 112/61 100 08/28/19 08:02 08/28/19 08:02 08/28/19 08:02 08/28/19 08:02 08/28/19 08:02 Intake & Output 08/27/19 08/28/19 08/29/19 06:59 06:59 06:59 Intake Total 160 500 480 Balance 160 500 480 Weight 86.1 kg - General General Appearance: Appears well, Alert - PIH/Pre-Eclampsia DTR's: 1 + Clonus: Negative Headache: Absent Epigastric Pain: No Visual Changes: No - Lochia Lochia Amount: Scant < 10 ml Lochia Color: Rubra/Red - Abdomen Description: Soft, Round Hernia Present: No Fundal Description: Firm, Midline Fundal Height: u/u - u/2 - Respiratory Respiratory Status: No respiratory distress - Abdominal Distension: No distension Tenderness: Nontender - Genitourinary Genitourinary Note: voiding - Extremities Upper extremity: Normal inspection Lower extremities: Normal inspection - Neurological Cognition: Normal Orientation: AAOx4 - Psychological Associated symptoms: Normal affect, Normal mood Objective-Diagnostic Laboratory: 08/28/19 07:19 08/26/19 19:25 08/28/19 07:19 WBC 9.4 RBC 3.44 L Hgb 9.5 L Hct 28.4 L MCV 83 MCH 27.5 MCHC 33.3 RDW 16.4 H Plt Count 188 Assessment and Plan(PN) - Assessment and Plan (1) , delivered Is this a current diagnosis for this admission?: Yes (2) Anemia, iron deficiency Qualifiers: Iron deficiency anemia type: inadequate dietary iron intake Qualified Code(s): D50.8 - Other iron deficiency anemias Is this a current diagnosis for this admission?: Yes (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 Qualified Code(s): A60.00 - H erpesviral infection of urogenital system, unspecified Is this a current diagnosis for this admission?: Yes (4) Hepatitis C Qualifiers: Viral hepatitis chronicity: unspecified Is this a current diagnosis for this admission?: Yes (5) History of section Is this a current diagnosis for this admission?: Yes (6) Poor patient attendance of care Is this a current diagnosis for this admission?: Yes (7) Spontaneous rupture of amniotic membranes Is this a current diagnosis for this admission?: Yes Plan:: Routine PP orders, ambulation encouraged - Time Spent with Patient Medications reviewed and adjusted accordingly: Yes - Disposition Anticipated Discharge: Home Within: within 24 hours
[2019-08-28] MEDS: DOCUSATE SODIUM 100 MG CAPSULE PO SCH ×2 (10:17→17:39)
[2019-08-28] MEDS: FAMOTIDINE 20 MG TABLET PO SCH ×2 (10:17→21:17)
[2019-08-28] MEDS: SENNOSIDES/DOCUSATE 8.6-50 MG 1 EACH TABLET PO SCH (10:17)
[2019-08-28] MEDS: PRENATAL VITAMIN W DHA CAPSULE PO SCH (10:17)
[2019-08-28] MEDS: FERROUS SULFATE 325 MG TABLET PO SCH ×2 (10:17→17:39)
[2019-08-29 01:36] LABS: HEPATITIS C QUANTITATION 2350000 IU/mL (.)
[2019-08-29] MEDS: IBUPROFEN 800 MG TABLET PO SCH (05:08)
[2019-08-29 07:46] VITALS: BP 100/50
[2019-08-29] MEDS: FAMOTIDINE 20 MG TABLET PO SCH (09:18)
[2019-08-29] MEDS: DOCUSATE SODIUM 100 MG CAPSULE PO SCH (09:18)
[2019-08-29] MEDS: FERROUS SULFATE 325 MG TABLET PO SCH (09:18)
[2019-08-29] MEDS: SENNOSIDES/DOCUSATE 8.6-50 MG 1 EACH TABLET PO SCH (09:18)
[2019-08-29] MEDS: PRENATAL VITAMIN W DHA CAPSULE PO SCH (09:18)
--- NOTE | 2019-08-29 11:30 | PDOC DISCHARGE SUMMARY ---
Impression - Admit/DC Date/PCP Admission Date/Primary Care Provider: 08/26/19 19:13 MATTHEW JUNIOR MD Discharge Date: 08/29/19 - Discharge Diagnosis (1) , delivered Is this a current diagnosis for this admission?: Yes (2) Anemia, iron deficiency Is this a current diagnosis for this admission?: Yes (3) History of section Is this a current diagnosis for this admission?: Yes (4) Genital HSV Is this a current diagnosis for this admission?: Yes (5) Poor patient attendance of care Is this a current diagnosis for this admission?: Yes (6) Spontaneous rupture of amniotic membranes Is this a current diagnosis for this admission?: Yes (7) Hepatitis C Is this a current diagnosis for this admission?: Yes - Assessment Summary: 24yo s/p ppd 2, stable and ready for discharge. Understands warning s/s. No concerns today - Additional Information Resuscitation Status: Full Code Discharge Diet: As Tolerated, Regular Discharge Activity: Activity As Tolerated, Balance Activity w/Rest, No Lifting Over 10 Pounds, Pelvic Rest, No tub bath, Walk Frequently Referrals: MATTHEW JUNIOR MD [Primary Care Provider] - Prescriptions: Ibuprofen [Motrin 800 mg Tablet] 800 mg PO Q8HP PRN #20 tablet PRN Reason: Abdominal Cramping Docusate Sodium [Colace 100 mg Capsule] 100 mg PO BID #60 capsule Ferrous Sulfate [Feosol 325 mg Tablet] 325 mg PO BID #60 tablet Home Medications: Vit,Calc76/Iron/Folic [Pnv 29-1 Tablet] 1 tab PO DAILY 06/30/19 Ferrous Sulfate [Feosol 325 mg Tablet] 325 mg PO BID 08/24/19 Valacyclovir HCl [Valtrex 500 mg Tablet] 500 mg PO BID 08/24/19 Docusate Sodium [Colace 100 mg Capsule] 100 mg PO BID #60 capsule 08/29/19 Ferrous Sulfate [Feosol 325 mg Tablet] 325 mg PO BID #60 tablet 08/29/19 Ibuprofen [Motrin 800 mg Tablet] 800 mg PO Q8HP PRN #20 tablet 08/29/19 Results Laboratory Results: WBC 9.4 10^3/uL (4.0-10.5) 08/28/19 07:19 RBC 3.44 10^6/uL (3.72-5.28) L 08/28/19 07:19 Hgb 9.5 g/dL (12.0-15.5) L 08/28/19 07:19 Hct 28.4 % (36.0-47.0) L 08/28/19 07:19 MCV 83 fl (80-97) 08/28/19 07:19 MCH 27.5 pg (27.0-33.4) 08/28/19 07:19 MCHC 33.3 g/dL (32.0-36.0) 08/28/19 07:19 RDW 16.4 % (11.5-14.0) H 08/28/19 07:19 Plt Count 188 10^3/uL (150-450) 08/28/19 07:19 Lymph % (Auto) 13.9 % (13-45) 08/26/19 19:25 [place] % (Auto) 5.8 % (3-13) 08/26/19 19:25 Eos % (Auto) 0.4 % (0-6) 08/26/19 19:25 Baso % (Auto) 0.3 % (0-2) 08/26/19 19:25 Absolute Neuts (auto) 9.7 10^3/uL (1.7-8.2) H 08/26/19 19:25 Absolute Lymphs (auto) 1.7 10^3/uL (0.5-4.7) 08/26/19 19:25 Absolute Monos (auto) 0.7 10^3/uL (0.1-1.4) 08/26/19 19:25 Absolute Eos (auto) 0.0 10^3/uL (0.0-0.6) 08/26/19 19:25 Absolute Basos (auto) 0.0 10^3/uL (0.0-0.2) 08/26/19 19:25 Seg Neutrophils % 79.6 % (42-78) H 08/26/19 19:25 PT 12.3 SEC (11.4-15.4) 08/26/19 19:25 INR 0.91 08/26/19 19:25 APTT 25.9 SEC (23.5-35.8) 08/26/19 19:25 Sodium 134.5 mmol/L (137-145) L 08/26/19 19:25 Potassium 3.7 mmol/L (3.6-5.0) 08/26/19 19:25 Chloride 105 mmol/L (98-107) 08/26/19 19:25 Carbon Dioxide 21 mmol/L (22-30) L 08/26/19 19:25 Anion Gap 9 (5-19) 08/26/19 19:25 BUN 7 mg/dL (7-20) 08/26/19 19:25 Creatinine 0.63 mg/dL (0.52-1.25) 08/26/19 19:25 Est GFR ( Amer) > 60 (>60) 08/26/19 19:25 Est GFR (MDRD) Non-Af > 60 (>60) 08/26/19 19:25 Glucose 124 mg/dL (75-110) H 08/26/19 19:25 Calcium 9.2 mg/dL (8.4-10.2) 08/26/19 19:25 Total Bilirubin 1.0 mg/dL (0.2-1.3) 08/26/19 19:25 Direct Bilirubin 0.1 mg/dL (0.0-0.4) 08/26/19 19:25 Neonat Total Bilirubin Not Reportable 08/26/19 19:25 Neonat Direct Bilirubin Not Reportable 08/26/19 19:25 Neonat Indirect Bili Not Reportable 08/26/19 19:25 AST 23 U/L (14-36) 08/26/19 19:25 ALT 15 U/L (<35) 08/26/19 19:25 Alkaline Phosphatase 105 U/L (38-126) 08/26/19 19:25 Total Protein 6.9 g/dL (6.3-8.2) 08/26/19 19:25 Albumin 3.6 g/dL (3.5-5.0) 08/26/19 19:25 Urine Color MARK 08/26/19 18:40 Urine Appearance CLEAR 08/26/19 18:40 Urine pH 5.0 (5.0-9.0) 08/26/19 18:40 Ur Specific [place] 1.017 08/26/19 18:40 Urine Protein NEGATIVE mg/dL (NEGATIVE) 08/26/19 18:40 Urine Glucose (UA) NEGATIVE mg/dL (NEGATIVE) 08/26/19 18:40 Urine Ketones NEGATIVE mg/dL (NEGATIVE) 08/26/19 18:40 Urine Blood NEGATIVE (NEGATIVE) 08/26/19 18:40 Urine Nitrite NEGATIVE (NEGATIVE) 08/26/19 18:40 Urine Bilirubin NEGATIVE (NEGATIVE) 08/26/19 18:40 Urine Urobilinogen 2.0 mg/dL (<2.0) H 08/26/19 18:40 Ur Leukocyte Esterase NEGATIVE (NEGATIVE) 08/26/19 18:40 Urine Ascorbic Acid NEGATIVE (NEGATIVE) 08/26/19 18:40 Membranes Rupture POSITIVE (NEGATIVE) H 08/26/19 18:40 Urine Opiates Screen NEGATIVE 08/26/19 18:40 Urine Methadone Screen NEGATIVE 08/26/19 18:40 Ur Barbiturates Screen NEGATIVE 08/26/19 18:40 Ur Phencyclidine Scrn NEGATIVE 08/26/19 18:40 Ur Amphetamines Screen NEGATIVE 08/26/19 18:40 U Benzodiazepines Scrn NEGATIVE 08/26/19 18:40 Urine Cocaine Screen NEGATIVE 08/26/19 18:40 U Marijuana (THC) Screen NEGATIVE 08/26/19 18:40 RPR NONREACTIVE (NONREACTIVE) 08/26/19 19:25 HCV Quantitation [id number] IU/mL (.) 08/26/19 19:25 HCV RNA PCR Test Info Comment (.) 08/26/19 19:25 Blood Type A POSITIVE 08/26/19 19:25 Antibody Screen NEGATIVE 08/26/19 19:25 Crossmatch See Detail 08/26/19 19:25
== END 2019-08-29 12:30 | disposition home or self-care (01) | DRG 806 ==
LOC: LC 18:32 → LR 19:13 → 2S 08-27 05:47
PROVIDERS: ADMIT Student in an Organized Health Care Education/Training Program; ATTEND Student in an Organized Health Care Education/Training Program
PROC: 10E0XZZ Delivery of Products of Conception, External Approach (ICD-10-PCS; principal; 2019-08-27)
DX: O34.211 Maternal care for low transverse scar from previous cesarean delivery (principal); O98.32 Other infections with a predominantly sexual mode of transmission complicating childbirth; Z37.0 Single live birth; O98.413 Viral hepatitis complicating pregnancy, third trimester; O99.02 Anemia complicating childbirth; D50.8 Other iron deficiency anemias; B19.20 Unspecified viral hepatitis C without hepatic coma; A60.00 Herpesviral infection of urogenital system, unspecified; Z88.8 Allergy status to other drugs, medicaments and biological substances; Z87.891 Personal history of nicotine dependence; Z3A.38 38 weeks gestation of pregnancy
CPT/HCPCS: 1967; 36415; 80053; 80307; 81005; 84112; 85025; 85027; 85610; 85730; 86592; 86850; 86900; 86901; 86920; 87522; J2590; J3010; J3490